=== PATIENT | female | born 1995 | race Caucasian/White ===

== ENCOUNTER 2019-06-08 12:13 | Emergency (ER) | payer SELFPAY ==
[2019-06-08 13:20] LABS: CHLORIDE,CL 102 mmol/L (98-107); SODIUM,NA 139 mmol/L (136-145)
--- NOTE | 2019-06-08 14:18 | EDM.PDOC ---
ED HPI GENERAL MEDICAL PROBLEM - General Chief Complaint: General Stated Complaint: right sided abdominal pain Time Seen by Provider: 06/08/19 12:30 Source of Information: Reports: Patient History Limitations: Reports: No Limitations - History of Present Illness INITIAL COMMENTS - FREE TEXT/NARRATIVE: Pain in low abdomen and right side of abdomen. No fever NO N/V/D Pt is 7 weeks Pain does not radiate No previous hx/o same Pain began yesterday Worse today Onset: Gradual Duration: Getting Worse Location: Reports: Abdomen abdominal pain Pain Score (Numeric/FACES): 5 - Related Data Allergies Allergy/AdvReac Type Severity Reaction Status Date / Time acetaminophen [From Vicodin] Allergy Rash Verified 06/08/19 12:23 amoxicillin Allergy Rash Verified 06/08/19 12:23 hydrocodone [From Vicodin] Allergy Rash Verified 06/08/19 12:23 Home Meds: Home Meds . 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: - Past Surgical History HEENT Surgical History: Reports: Oral Surgery, Other (See Below) Other HEENT Surgeries/Procedures: wisdom teeth removal Female Surgical History: Reports: Other (See Below) Other Female Surgeries/Procedures: uteral surgery for endosetriosis Social & Family History - Tobacco Use Smoking Status *Q: Current Every Day Smoker Years of Tobacco use: 11 Packs/Tins Daily: 0.5 - Caffeine Use Caffeine Use: Reports: Coffee, Soda - Recreational Drug Use Recreational Drug Use: No ED ROS GENERAL - Review of Systems Review Of Systems: See Below GI/Abdominal: Reports: Abdominal Pain ED EXAM, GENERAL - Physical Exam Exam: See Below Exam Limited By: No Limitations General Appearance: Mild Distress Neck: Supple Respiratory/Chest: Lungs Clear Cardiovascular: Regular Rate, Rhythm GI/Abdominal: Other (Mildly tender across low abdomen No rebound No guarding) Course - Vital Signs Last Recorded V/S: Last Vital Signs Temp 97.9 F 06/08/19 12:14 Pulse 79 06/08/19 12:14 Resp 16 06/08/19 12:14 BP 122/66 06/08/19 12:14 Pulse Ox 99 06/08/19 12:14 - Orders/Labs/Meds Labs: Laboratory Tests 02/14/20 02/14/20 02/14/20 Range/Units 12:35 12:35 13:45 WBC 7.7 (4.0-10.2) K/uL RBC 4.45 (3.77-5.09) M/uL Hgb 12.5 (11.7-15.5) g/dL Hct 37.9 (34.0-46.0) % MCV 85.2 (84.0-98.0) fL MCH 28.1 L (28.2-33.3) pg MCHC 33.0 (31.7-36.0) g/dL RDW 14.7 H (11.2-14.1) % Plt Count 268 (150-350) K/uL Neut % (Auto) 66.6 (45.0-80.0) % Lymph % (Auto) 25.3 (10.0-50.0) % [place] % (Auto) 6.1 (2.0-14.0) % Eos % (Auto) 1.9 (0.0-5.0) % Baso % (Auto) 0.1 (0.0-2.0) % Neut # (Auto) 5.15 (1.40-7.00) K/uL Lymph # (Auto) 1.96 (0.50-3.50) K/uL [place] # (Auto) 0.47 (0.00-1.00) K/uL Eos # (Auto) 0.15 (0.00-0.50) K/uL Baso # (Auto) 0.01 (0.00-0.20) K/uL Sodium 139 (136-145) mmol/L Potassium 3.7 (3.5-5.1) mmol/L Chloride 102 (98-107) mmol/L Carbon Dioxide 26.0 (21.0-32.0) mmol/L BUN 6 L (7-18) mg/dL Creatinine 0.43 L (0.51-1.17) mg/dL Est Cr Clr Drug Dosing 179.97 mL/min Estimated GFR (MDRD) > 60 mL/min Glucose 94 (74-106) mg/dL Calcium 9.2 (8.5-10.1) mg/dL Total Bilirubin 0.5 (0.2-1.0) mg/dL AST 12 L (15-37) U/L ALT 14 (12-78) U/L Alkaline Phosphatase 73 (46-116) IU/L Total Protein 7.3 (6.4-8.2) g/dL Albumin 3.8 (3.4-5.0) g/dL HCG, Quant 35278 mIU/mL Specimen Type Urincc Urine Color Yellow Urine Appearance Cloudy Urine pH 8.5 (5.0-9.0) Ur Specific [place] 1.015 (1.005-1.030) Urine Protein Negative (NEGATIVE) mg/dL Urine Glucose (UA) Negative (NEGATIVE) mg/dL Urine Ketones Negative (NEGATIVE) mg/dL Urine Occult Blood Negative (NEGATIVE) Urine Nitrite Positive H (NEGATIVE) Urine Bilirubin Negative (NEGATIVE) Urine Urobilinogen 0.2 (0.2-1.0) E.U./dL Ur Leukocyte Esterase Small H (NEGATIVE) Urine RBC 0-5 /HPF Urine WBC 10-20 H /HPF Ur Epithelial Cells Few /LPF Urine Bacteria Many H (NONE TO FEW) /HPF - Re-Assessments/Exams Free Text/Narrative Re-Assessment/Exam: 06/08/19 14:15 Pt stable in ER See lab Departure - Departure Time of Disposition: 14:30 Disposition: Home, Self-Care 01 Clinical Impression: UTI (urinary tract infection) Qualifiers: Urinary tract infection type: site unspecified Hematuria presence: without hematuria Qualified Code(s): N39.0 - Urinary tract infection, site not specified Qualifiers: Weeks of gestation: less than 8 weeks Qualified Code(s): Z3A.01 - Less than 8 weeks gestation of - Discharge Information *PRESCRIPTION DRUG MONITORING PROGRAM REVIEWED*: Not Applicable *COPY OF PRESCRIPTION DRUG MONITORING REPORT IN PATIENT KOTA: Not Applicable Instructions: Urinary Tract Infection, Adult, and Urinary Tract Infection, First Trimester of Referrals: PCP,Unknown [Primary Care Provider] - Additional Instructions: Rx Keflex 500 mg TID for 10 days Follow up in clinic Sepsis Event Note - Evaluation Sepsis Screening Result: No Definite Risk - Focused Exam Vital Signs: Vital Signs Temp Pulse Resp BP Pulse Ox 06/08/19 12:14 97.9 F 79 16 122/66 99 Date Exam was Performed: 06/08/19 Time Exam was Performed: 14:11
== END 2019-06-08 15:02 | disposition home or self-care (01) ==
LOC: LL.ED 12:13
DX: O23.41 Unspecified infection of urinary tract in pregnancy, first trimester (principal); O99.331 Smoking (tobacco) complicating pregnancy, first trimester; F17.210 Nicotine dependence, cigarettes, uncomplicated; Z3A.01 Less than 8 weeks gestation of pregnancy; Z88.6 Allergy status to analgesic agent; Z88.0 Allergy status to penicillin; Z88.5 Allergy status to narcotic agent
CPT/HCPCS: 36415; 80053; 81001; 84702; 85025; 87086; 87088; 87186; 99284

== ENCOUNTER 2020-09-11 10:25 | Emergency (ER) | payer SELFPAY ==
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
[2020-09-11] MEDS ORDERED: Sodium Chloride 0.9% 10 ML Syringe FLUSH PRN (10:40)
[2020-09-11 11:30] LABS: CHLORIDE,CL 105 mmol/L (98-107); SODIUM,NA 140 mmol/L (136-145)
== END 2020-09-11 12:23 | disposition home or self-care (01) ==
LOC: LL.ED 10:25
DX: S20.212A Contusion of left front wall of thorax, initial encounter (principal); Z72.0 Tobacco use; Z71.6 Tobacco abuse counseling; Z88.0 Allergy status to penicillin; Z88.5 Allergy status to narcotic agent; Z88.8 Allergy status to other drugs, medicaments and biological substances; W50.0XXA Accidental hit or strike by another person, initial encounter
CPT/HCPCS: 36415; 71101-LT; 80053; 82150; 83690; 84703; 85025; 99283; 99283-25